=== PATIENT | female | born 1995 | race Caucasian/White ===

== ENCOUNTER 2019-05-05 12:12 | Inpatient (IN) | payer OTHER ==
[2019-05-05] MEDS ORDERED: SODIUM CHLORIDE 0.9% 1,000 ML IV STA ×2 (13:13→14:51)
[2019-05-05] MEDS ORDERED: ONDANSETRON 4 MG/2 ML VIAL IVP STA (13:13)
[2019-05-05] MEDS ORDERED: MORPHINE SULFATE 4 MG/ML SYRINGE IV STA (13:39)
--- NOTE | 2019-05-05 13:54 | ED ---
General Adult HPI - General Chief complaint: Abdominal Pain Stated complaint: Vomiting, abd pain Time Seen by Provider: 05/05/19 13:11 Source: patient Mode of arrival: ambulatory Limitations: no limitations - History of Present Illness Initial comments: Dictation was produced using [employer] dictation software. please excuse any grammatical, word or spelling errors. Chief Complaint: 24-year-old female presents with nausea vomiting abdominal pain. History of Present Illness: 24-year-old female she presents with nausea vomiting and abdominal pain. Patient states she's been feeling this since yesterday. She states she is currently on her period. She states that during her menstrual cycle she typically gets a little nauseated. Stat able to keep anything down. States that when she eats she feels instantly that she has to vomit. Strength take some antiemetics without any relief. Denies any fever, chills or night sweats. Patient states that she has diffuse abdominal pain. 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 Patient reports that her emesis is nonbilious not bloody The ROS documented in this emergency department record has been reviewed and confirmed by me. Those systems with pertinent positive or negative responses hicks ve been documented in the HPI. All other systems are other negative and/or noncontributory. PHYSICAL EXAM: General Impression: Alert and oriented x3, not in acute distress HEENT: Normocephalic atraumatic, extra-ocular movements intact, pupils equal and reactive to light bilaterally, mucous membranes moist. Cardiovascular: Heart regular rate and rhythm, S1&S2 audible, no murmurs, rubs or gallops Chest: Lungs clear to auscultation bilaterally, no rhonchi, no wheeze, no rales Abdomen: Bowel sounds present, abdomen soft, diffuse down tenderness to palpation Musculoskeletal: Pulses present and equal in all extremities, no peripheral edema Motor: no focal deficits noted Neurological: CN II-XII grossly intact, no focal motor or sensory deficits noted Skin: Multiple thoracic scars Psych: Normal affect and mood ED course: 24-year-old female with congenital cardiac defect status post surgery presents with nausea vomiting and abdominal pain. Vital signs upon arrival are within acceptable limits. Laboratory evaluation obtained. Leukocytosis of 18.4. Metabolic panel shows mild anion gap acidosis with a gap of 14 bicarb of 20. Lipase level is 1393. Urinalysis shows 2+ ketones. Patient given intravenous fluids. Ultrasound of the gallbladder was ordered showing no evidence of cholelithiasis or acute cholecystitis. Abdominal x-ray and chest x-ray are not acute. Patient will be admitted to Dr. Warren's group. Spoke with Debbi with the mid-level provider they will be accepting patient for care. Gastroenterology is consulted. EKG interpretation: Ventricular rate 82, unusual P axis, UT interval 116, QRS 96, QTC 448. No old EKG for comparison - Related Data Home Medications Medication Instructions Recorded Confirmed Aspirin 81 mg PO DAILY 05/05/19 05/05/19 Levalbuterol Tartrate 1 puff INHALATION RT-Q4H PRN 05/05/19 05/05/19 [Levalbuterol Tartrate 45 MCG Hfa] Allergies Allergy/AdvReac Type Severity Reaction Status Date / Time amoxicillin Allergy Dyspnea Verified 05/05/19 13:46 Penicillins Allergy Dyspnea Verified 05/05/19 13:46 Sulfa (Sulfonamide Allergy Dyspnea Verified 05/05/19 13:46 Antibiotics) Review of Systems ROS Statement: Those systems with pertinent positive or pertinent negative responses have been documented in the HPI. ROS Other: All systems not noted in ROS Statement are negative. 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 History of Any Multi-Drug Resistant Organisms: None Reported Past Surgical History: Coronary Bypass/CABG Past Psychological History: Anxiety, Depression Smoking Status: Never smoker Past Alcohol Use History: None Reported Past Drug Use History: None Reported General Exam Limitations: no limitations Course Vital Signs 05/05/19 05/05/19 05/05/19 12:37 14:19 15:56 Temperature 97.8 F Pulse Rate 57 L 100 87 Respiratory 20 18 18 Rate Blood Pressure 114/76 138/102 117/71 O2 Sat by Pulse 98 98 95 Oximetry Medical Decision Making - Lab Data Result diagrams: 05/05/19 14:05 05/05/19 14:05 Lab Results 05/05/19 05/05/19 05/05/19 Range/Units 14:05 14:05 14:05 WBC 18.4 H (3.8-10.6) k/uL RBC 4.90 (3.80-5.40) m/uL Hgb 14.7 (11.4-16.0) gm/dL Hct 44.9 (34.0-46.0) % MCV 91.7 (80.0-100.0) fL MCH 30.0 (25.0-35.0) pg MCHC 32.8 (31.0-37.0) g/dL RDW 13.1 (11.5-15.5) % Plt Count 140 L (150-450) k/uL Neutrophils % 89 % Lymphocytes % 5 % Monocytes % 5 % Eosinophils % 1 % Basophils % 0 % Neutrophils # 16.3 H (1.3-7.7) k/uL Lymphocytes # 0.9 L (1.0-4.8) k/uL Monocytes # 0.8 (0-1.0) k/uL Eosinophils # 0.2 (0-0.7) k/uL Basophils # 0.0 (0-0.2) k/uL Sodium 135 L (137-145) mmol/L Potassium 3.8 (3.5-5.1) mmol/L Chloride 101 (98-107) mmol/L Carbon Dioxide 20 L (22-30) mmol/L Anion Gap 14 mmol/L BUN 15 (7-17) mg/dL Creatinine 0.51 L (0.52-1.04) mg/dL Est GFR (CKD-EPI)AfAm >90 (>60 ml/min/1.73 sqM) Est GFR (CKD-EPI)NonAf >90 (>60 ml/min/1.73 sqM) Glucose 121 H (74-99) mg/dL Calcium 10.3 H (8.4-10.2) mg/dL Total Bilirubin 1.2 (0.2-1.3) mg/dL AST 34 (14-36) U/L ALT 26 (4-34) U/L Alkaline Phosphatase 75 (38-126) U/L Total Protein 8.1 (6.3-8.2) g/dL Albumin 5.1 H (3.5-5.0) g/dL Lipase 1393 H (23-300) U/L Urine Color Urine Appearance (Clear) Urine pH (5.0-8.0) Ur Specific [place] (1.001-1.035) Urine Protein (Negative) Urine Glucose (UA) (Negative) Urine Ketones (Negative) Urine Blood (Negative) Urine Nitrite (Negative) Urine Bilirubin (Negative) Urine Urobilinogen (<2.0) mg/dL Ur Leukocyte Esterase (Negative) Urine WBC (0-5) /hpf Ur Squamous Epith Cells (0-4) /hpf Hyaline Casts (0-2) /lpf Urine Mucus (None) /hpf Urine HCG, Qual Not Detected (Not Detectd) 05/05/19 Range/Units 14:05 WBC (3.8-10.6) k/uL RBC (3.80-5.40) m/uL Hgb (11.4-16.0) gm/dL Hct (34.0-46.0) % MCV (80.0-100.0) fL MCH (25.0-35.0) pg MCHC (31.0-37.0) g/dL RDW (11.5-15.5) % Plt Count (150-450) k/uL Neutrophils % % Lymphocytes % % Monocytes % % Eosinophils % % Basophils % % Neutrophils # (1.3-7.7) k/uL Lymphocytes # (1.0-4.8) k/uL Monocytes # (0-1.0) k/uL Eosinophils # (0-0.7) k/uL Basophils # (0-0.2) k/uL Sodium (137-145) mmol/L Potassium (3.5-5.1) mmol/L Chloride (98-107) mmol/L Carbon Dioxide (22-30) mmol/L Anion Gap mmol/L BUN (7-17) mg/dL Creatinine (0.52-1.04) mg/dL Est GFR (CKD-EPI)AfAm (>60 ml/min/1.73 sqM) Est GFR (CKD-EPI)NonAf (>60 ml/min/1.73 sqM) Glucose (74-99) mg/dL Calcium (8.4-10.2) mg/dL Total Bilirubin (0.2-1.3) mg/dL AST (14-36) U/L ALT (4-34) U/L Alkaline Phosphatase (38-126) U/L Total Protein (6.3-8.2) g/dL Albumin (3.5-5.0) g/dL Lipase (23-300) U/L Urine Color Yellow Urine Appearance Clear (Clear) Urine pH 7.0 (5.0-8.0) Ur Specific [place] 1.021 (1.001-1.035) Urine Protein Trace H (Negative) Urine Glucose (UA) Negative (Negative) Urine Ketones 2+ H (Negative) Urine Blood Small H (Negative) Urine Nitrite Negative (Negative) Urine Bilirubin Negative (Negative) Urine Urobilinogen <2.0 (<2.0) mg/dL Ur Leukocyte Esterase Negative (Negative) Urine WBC 1 (0-5) /hpf Ur Squamous Epith Cells 2 (0-4) /hpf Hyaline Casts 13 H (0-2) /lpf Urine Mucus Few H (None) /hpf Urine HCG, Qual (Not Detectd) Disposition Clinical Impression: Pancreatitis Disposition: ADMITTED IP TO THIS [facility] Condition: Fair Referrals: None,Stated [Primary Care Provider] - 1-2 days Decision Time: 16:13
[2019-05-05 14:21] LABS: Basophils % (A) 0 %; Eosinophils # (A) 0.2 k/uL (0-0.7); Eosinophils % (A) 1 %; HCT 44.9 % (34.0-46.0); HGB 14.7 gm/dL (11.4-16.0); Lymphocytes # (A) 0.9 k/uL (1.0-4.8); Lymphocytes % (A) 5 %; MCHC 32.8 g/dL (31.0-37.0); MCV 91.7 fL (80.0-100.0); Mean Platelet Volume 10.1; Monocytes # (A) 0.8 k/uL (0-1.0); Monocytes % (A) 5 %; Neutrophils # (A) 16.3 k/uL (1.3-7.7); Neutrophils % (A) 89 %; Platelet Count 140 k/uL (150-450); RDW 13.1 % (11.5-15.5); WBC 18.4 k/uL (3.8-10.6)
[2019-05-05 14:26] LABS: Appearance,Urine Clear (Clear); Bilirubin,Urine Negative (Negative); Blood,Urine Small (Negative); Color,Urine Yellow; Glucose,Urine (UA) Negative (Negative); Hyaline Casts,Urine 13 /lpf (0-2); Ketones,Urine 2+ (Negative); Leukocyte Esterase,Urine Negative (Negative); Mucus,Urine Few /hpf; Nitrite,Urine Negative (Negative); Protein,Urine Trace (Negative); Specific Gravity,Urine 1.021 (1.001-1.035); Squamous Epithelial Cell,Urine 2 /hpf (0-4); Urobilinogen,Urine <2.0 mg/dL (<2.0); WBC,Urine 1 /hpf (0-5)
[2019-05-05 14:36] LABS: ALT 26 U/L (4-34); AST 34 U/L (14-36); African American GFR (CKD) >90 (>60 ml/min/1.73 sqM); Albumin 5.1 g/dL (3.5-5.0); Alkaline Phosphatase 75 U/L (38-126); Anion Gap 14 mmol/L; Blood Urea Nitrogen 15 mg/dL (7-17); Calcium 10.3 mg/dL (8.4-10.2); Carbon Dioxide 20 mmol/L (22-30); Chloride 101 mmol/L (98-107); Glucose 121 mg/dL (74-99); Non-African American GFR(CKD) >90 (>60 ml/min/1.73 sqM); Potassium 3.8 mmol/L (3.5-5.1); Sodium 135 mmol/L (137-145); Total Bilirubin 1.2 mg/dL (0.2-1.3); Total Protein 8.1 g/dL (6.3-8.2)
--- NOTE | 2019-05-05 15:16 | XR ---
EXAMINATION TYPE: XR chest 2V DATE OF EXAM: 05/05/2019 COMPARISON: NONE HISTORY: Substernal chest pain TECHNIQUE: Frontal and lateral views of the chest are obtained. FINDINGS: Ascending thoracic aorta is tortuous. Midline sternotomy wires are seen. There is no focal air space opacity, pleural effusion, or pneumothorax seen. The cardiac silhouette size is within no rmal limits. The osseous structures are intact. IMPRESSION: Tortuosity of the ascending thoracic aorta, possible aneurysm. Correlate with cardiac hi story is prior cardiac surgery has been performed. No acute pulmonary pathology.
--- NOTE | 2019-05-05 15:24 | XR ---
EXAMINATION TYPE: XR abdomen 1V DATE OF EXAM: 05/05/2019 CLINICAL HISTORY: Abdominal pain, nausea, and vomiting TECHNIQUE: Single upright view of the abdomen was obtained. COMPARISON: None. FINDINGS: Multiple leads overlie the abdomen. No dilated large or small bowel. Lung bases are well ae rated. Osseous structures appear intact. No abnormal calcification in the abdomen or pelvis. No pneum operitoneum. IMPRESSION: Nonobstructive bowel gas pattern.
--- NOTE | 2019-05-05 15:57 | US ---
EXAMINATION TYPE: US gallbladder DATE OF EXAM: 05/05/2019 COMPARISON: NONE CLINICAL HISTORY: epigastric pain. Pain pancreatis situs inverses. EXAM MEASUREMENTS: Liver Length: 12.3 cm Gallbladder Wall: 0.1 cm CBD: 0.5 cm Right Kidney: 10.8 x 4.8 x cm Pancreas: Tail obscured by overlying bowel gas Liver: wnl Gallbladder: wnl Evidence for sonographic Acuna's sign: No CBD: wnl Right Kidney: wnl IMPRESSION: No sonographic evidence of cholelithiasis nor acute cholecystitis. Pancreas is partially obscured by bowel gas.
[2019-05-05] MEDS ORDERED: ONDANSETRON 4 MG/2 ML VIAL IVP PRN (16:10)
[2019-05-05] MEDS ORDERED: NALOXONE 0.4 MG/ML 1 ML VIAL IV PRN (16:10)
[2019-05-05] MEDS: SODIUM CHLORIDE 0.9% 1,000 ML IV SCH (17:55)
[2019-05-06] MEDS: SODIUM CHLORIDE 0.9% 1,000 ML IV SCH ×2 (03:32→11:17)
[2019-05-06 05:26] VITALS: BP 110/79; PULSE 70; RESP 16; TEMP 97.9
[2019-05-06] MEDS ORDERED: PANTOPRAZOLE 40 MG/10 ML VIAL IVP SCH (10:30)
--- NOTE | 2019-05-06 13:59 | P.HPIM ---
History of Present Illness Patient is a pleasant 24-year-old female came in with the complaints of nausea vomiting abdominal pain patient has an epigastric abdominal pain diffuse nonradiating sharp in nature moderate severity. Patient did vomit. Patient is admitted for pancreatitis patient has mildly elevated lipase of 1300. Patient's abdominal pain completely resolved at this time. Patient has some chronic abdominal pain which always happened just before her periods patient is presently having periods of his symptoms started yesterday. Patient denied any fever chills patient and the diarrhea. Patient doesn't believe this is secondary to gastritis or peptic ulcer disease patient does have gastroesophageal reflux disease in the these symptoms are different from her regular acid reflux symptoms. Patient denied any history of alcoholism ultraso und of the gallbladder did not show any gallstones or cholelithiasis. Does have history of asthma Review of Systems REVIEW OF SYSTEMS: CONSTITUTIONAL: No fever, no malaise, no fatigue. HEENT: No recent visual problems or hearing problems. Denied any sore throat. CARDIOVASCULAR: No chest pain, orthopnea, PND, no palpitations, no syncope. PULMONARY: No shortness of breath, no cough, no hemoptysis. GASTROINTESTINAL: As mentioned in HPI NEUROLOGICAL: No headaches, no weakness, no numbness. HEMATOLOGICAL: Denies any bleeding or petechiae. GENITOURINARY: Denies any burning micturition, frequency, or urgency. MUSCULOSKELETAL/RHEUMATOLOGICAL: Denies any joint pain, swelling, or any muscle pain. ENDOCRINE: Denies any polyuria or polydipsia. The rest of the 14-point review of systems is negative. 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 05/06/19 Rx Allergies Allergy/AdvReac Type Severity Reaction Status Date / Time amoxicillin Allergy Dyspnea Verified 05/05/19 13:46 Penicillins Allergy Dyspnea Verified 05/05/19 13:46 Sulfa (Sulfonamide Allergy Dyspnea Verified 05/05/19 13:46 Antibiotics) Physical Exam Vitals: Vital Signs Temp Pulse Pulse Resp BP BP Pulse Ox 05/06/19 05:25 97.9 F 70 16 110/79 92 L 05/05/19 21:24 98.1 F 65 18 114/79 93 L 05/05/19 17:06 97.8 F 87 18 117/71 95 05/05/19 15:56 87 18 117/71 95 05/05/19 14:19 100 18 138/102 98 Intake and Output 05/05/19 05/06/19 05/06/19 22:59 06:59 14:59 Other: # Voids 1 2 Weight 57.788 kg PHYSICAL EXAMINATION: GENERAL: The patient is alert and oriented x3, not in any acute distress. Well developed, well nourished. HEENT: Pupils are round and equally reacting to light. EOMI. No scleral icterus. No conjunctival pallor. Normocephalic, atraumatic. No pharyngeal erythema. No thyromegaly. CARDIOVASCULAR: S1 and S2 present. No murmurs, rubs, or gallops. PULMONARY: Chest is clear to auscultation, no wheezing or crackles. ABDOMEN: Soft, nontender, nondistended, normoactive bowel sounds. No palpable organomegaly. MUSCULOSKELETAL: No joint swelling or deformity. EXTREMITIES: No cyanosis, clubbing, or pedal edema. NEUROLOGICAL: Gross neurological examination did not reveal any focal deficits. SKIN: No rashes. Results CBC & Chem 7: 05/05/19 14:05 05/05/19 14:05 Labs: Abnormal Lab Results - Last 24 Hours (Table) 05/05/19 05/05/19 05/05/19 Range/Units 14:05 14:05 14:05 WBC 18.4 H (3.8-10.6) k/uL Plt Count 140 L (150-450) k/uL Neutrophils # 16.3 H (1.3-7.7) k/uL Lymphocytes # 0.9 L (1.0-4.8) k/uL Sodium 135 L (137-145) mmol/L Carbon Dioxide 20 L (22-30) mmol/L Creatinine 0.51 L (0.52-1.04) mg/dL Glucose 121 H (74-99) mg/dL Calcium 10.3 H (8.4-10.2) mg/dL Albumin 5.1 H (3.5-5.0) g/dL Lipase 1393 H (23-300) U/L Urine Protein Trace H (Negative) Urine Ketones 2+ H (Negative) Urine Blood Small H (Negative) Hyaline Casts 13 H (0-2) /lpf Urine Mucus Few H (None) /hpf Thrombosis Risk Factor Assmnt - Choose All That Apply Any of the Below Risk Factors Present?: No Assessment and Plan Plan: -Abdominal pain: Has symptomology is mostly consistent with endometriosis that than anything else although patient does follow up with the gynecology as an outpatient and patient has a scheduled diagnostic laparoscopy. Patient only has mild elevation of lipase my suspicion is low that patient has pancreatitis patient was started on diet will be discharged today patient can resume her regular diet. 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 -Depression
--- NOTE | 2019-05-06 14:02 | P.DS ---
Providers Date of admission: 05/05/19 16:10 Attending physician: Zander Warren Consults: 05/05/19 16:07 Consult Physician Routine Consulting Provider: Fran Hobbs Consult Reason/Comments: pancreatitis Do you want consulting provider notified?: Yes Primary care physician: Stated None Hospital Course: Please refer to HPI for further details Patient Condition at Discharge: Fair Plan - Discharge Summary New Discharge Prescriptions: New Omeprazole [PriLOSEC] 40 mg PO AC-BRKFST #14 capsule. No Action Aspirin 81 mg PO DAILY Levalbuterol Tartrate [Levalbuterol Tartrate 45 MCG Hfa] 1 puff INHALATION RT-Q4H PRN PRN Reason: Shortness Of Breath Discharge Medication List Aspirin 81 mg PO DAILY 05/05/19 [History] Levalbuterol Tartrate [Levalbuterol Tartrate 45 MCG Hfa] 1 puff INHALATION RT- Q4H PRN 05/05/19 [History] Omeprazole [PriLOSEC] 40 mg PO AC-BRKFST #14 capsule. 05/06/19 [Rx] Follow up Appointment(s)/Referral(s): Dmitri Nam MD [REFERRING] - 1 Week None,Stated [Primary Care Provider] - 1-2 days
== END 2019-05-06 15:28 | disposition home or self-care (01) | DRG 760 ==
LOC: EC 12:12 → 6NMEDSUR 16:10
PROVIDERS: ADMIT Hospitalist; ATTEND Hospitalist
DX: N80.9 Endometriosis, unspecified (principal); E87.2 Acidosis; G89.29 Other chronic pain; K21.9 Gastro-esophageal reflux disease without esophagitis; J45.909 Unspecified asthma, uncomplicated; F32.9 Major depressive disorder, single episode, unspecified; R74.8 Abnormal levels of other serum enzymes; Z79.82 Long term (current) use of aspirin; Z88.0 Allergy status to penicillin; Z87.74 Personal history of (corrected) congenital malformations of heart and circulatory system; Z95.1 Presence of aortocoronary bypass graft; Z88.2 Allergy status to sulfonamides
CPT/HCPCS: 36415; 71046; 74018; 76705; 80053; 81001; 81025; 83690; 85025; 93005; 96361; 96374; 96375; 99285

== ENCOUNTER 2019-09-13 12:39 | Emergency (ER) | payer OTHER ==
[2019-09-13 13:00] VITALS: RESP 18
[2019-09-13] MEDS ORDERED: ONDANSETRON 4 MG/2 ML VIAL IVP STA (14:17)
[2019-09-13] MEDS ORDERED: KETOROLAC 30 MG/ML 1 ML VIAL IVP STA (14:17)
[2019-09-13] MEDS ORDERED: SODIUM CHLORIDE 0.9% 2,000 ML IV STA (14:17)
[2019-09-13] MEDS ORDERED: FAMOTIDINE 20 MG/2 ML VIAL IV STA (14:18)
--- NOTE | 2019-09-13 14:18 | ED ---
Abdominal Pain HPI - General Chief Complaint: Abdominal Pain Stated Complaint: Abdominal Pain Time Seen by Provider: 09/13/19 14:06 Source: patient Mode of arrival: ambulatory Limitations: no limitations - History of Present Illness Initial Comments: Patient is 24-year-old female with history of pancreatitis presenting to emergency Department with chief complaint of abdominal pain. Patient states this is an ongoing issue for past few years where she develops a sudden onset of abdominal pain with multiple episodes of nausea and nonbilious, nonbloody vomiting. Patient reports typically the pain starts when she has an onset of her menstrual period but does not resolve when her menstrual cycles. Patient reports his most recent episode had occurred about 8 days ago she has not been able to keep much down which is causing her not to have any bowel movements over the last few days. Patient reports the pain as constant and sharp in nature mostly located in the epigastric region. Patient states she is not a alcohol drinker nor has a history of gallbladder related conditions. Patient reports taking [id number] analgesics with minimal improvement in symptoms. Denies any night sweats fevers chills. States the pain is not related to by mouth intake. Denies any vaginal or urinary symptoms. Denies hematuria, hematochezia or melena. Patient is a family history of endometriosis. - Related Data Home Medications Medication Instructions Recorded Confirmed Aspirin 81 mg PO DAILY 05/05/19 05/05/19 Levalbuterol Tartrate 1 puff INHALATION RT-Q4H PRN 05/05/19 05/05/19 [Levalbuterol Tartrate 45 MCG Hfa] Previous Rx's Medication Instructions Recorded Omeprazole [PriLOSEC] 40 mg PO RIOS-[facility]ARY #14 capsule. 05/06/19 Ondansetron Odt [Zofran Odt] 4 mg PO Q8HR PRN #14 tab 09/13/19 Allergies Allergy/AdvReac Type Severity Reaction Status Date / Time amoxicillin Allergy Dyspnea Verified 09/13/19 13:00 Penicillins Allergy Dyspnea Verified 09/13/19 13:00 Sulfa (Sulfonamide Allergy Dyspnea Verified 09/13/19 13:00 Antibiotics) Review of Systems ROS Statement: Those systems with pertinent positive or pertinent negative responses have been documented in the HPI. ROS Other: All systems not noted in ROS Statement are negative. 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 Absent: TM's normal bilaterally, normal external ear exam Neck exam: Present: normal inspection, full ROM. Absent: tenderness Respiratory exam: Present: normal lung sounds bilaterally. Absent: respiratory distress, wheezes, rales Cardiovascular Exam: Present: regular rate, normal rhythm, normal heart sounds GI/Abdominal exam: Present: soft, tenderness (Epigastric and left upper quadrant abdominal pain.), normal bowel sounds. Absent: distended, guarding, rebound Extremities exam: Present: normal inspection, full ROM. Absent: tenderness Back exam: Present: normal inspection, full ROM. Absent: tenderness, CVA tenderness (R), CVA tenderness (L) Neurological exam: Present: alert, oriented X3 Psychiatric exam: Present: normal affect, normal mood Skin exam: Present: warm, dry, intact, normal color Course Vital Signs 09/13/19 12:58 Temperature 97.7 F Pulse Rate 90 Respiratory 18 Rate Blood Pressure 120/80 O2 Sat by Pulse 99 Oximetry Medical Decision Making - Medical Decision Making Patient is a 24-year-old female presenting to emergency Department with chief complaint of abdominal pain. Symptoms about one for the past few years it seemed to be related to her menstrual cycles. She has been evaluated multiple times in the emergency department in [place] and in [place] with CT imaging showing nothing by free fluid in the abdomen. States prior to her onset of symptoms she did see her mixing tank operator and had a Pap smear. She is scheduled to have an abdominal ultrasound in 1 week. Patient has a leukocytosis of 14.9 which I suspect is secondary to the vomiting episodes. Patient is not . UA does show +3 ketones. Patient given 2 L of bolus fluids. Patient also given antiemetics and analgesia in the emergency department. I suspect her symptoms are secondary to endometriosis. She said to follow-up with a mixing tank operator within a week. Return parameters were thoroughly discussed the patient is understanding and agreeable she will be discharged with Jovany. Case discussed with physician. - Lab Data Result diagrams: 09/13/19 14:47 09/13/19 14:47 Lab Results 09/13/19 09/13/19 09/13/19 Range/Units 14:47 14:47 14:47 WBC 14.9 H (3.8-10.6) k/uL RBC 5.62 H (3.80-5.40) m/uL Hgb 16.8 H (11.4-16.0) gm/dL Hct 52.9 H (34.0-46.0) % MCV 94.1 (80.0-100.0) fL MCH 29.8 (25.0-35.0) pg MCHC 31.7 (31.0-37.0) g/dL RDW 13.5 (11.5-15.5) % Plt Count 146 L (150-450) k/uL Neutrophils % 94 % Lymphocytes % 3 % Monocytes % 2 % Eosinophils % 1 % Basophils % 0 % Neutrophils # 14.1 H (1.3-7.7) k/uL Lymphocytes # 0.4 L (1.0-4.8) k/uL Monocytes # 0.2 (0-1.0) k/uL Eosinophils # 0.2 (0-0.7) k/uL Basophils # 0.0 (0-0.2) k/uL Sodium (137-145) mmol/L Potassium (3.5-5.1) mmol/L Chloride (98-107) mmol/L Carbon Dioxide (22-30) mmol/L Anion Gap mmol/L BUN (7-17) mg/dL Creatinine (0.52-1.04) mg/dL Est GFR (CKD-EPI)AfAm (>60 ml/min/1.73 sqM) Est GFR (CKD-EPI)NonAf (>60 ml/min/1.73 sqM) Glucose (74-99) mg/dL Calcium (8.4-10.2) mg/dL Total Bilirubin (0.2-1.3) mg/dL AST (14-36) U/L ALT (4-34) U/L Alkaline Phosphatase (38-126) U/L Total Protein (6.3-8.2) g/dL Albumin (3.5-5.0) g/dL Amylase (30-110) U/L Lipase (23-300) U/L Urine Color Yellow Urine Appearance Cloudy H (Clear) Urine pH 5.5 (5.0-8.0) Ur Specific [place] 1.029 (1.001-1.035) Urine Protein Trace H (Negative) Urine Glucose (UA) Negative (Negative) Urine Ketones 2+ H (Negative) Urine Blood Negative (Negative) Urine Nitrite Negative (Negative) Urine Bilirubin Negative (Negative) Urine Urobilinogen <2.0 (<2.0) mg/dL Ur Leukocyte Esterase Negative (Negative) Urine RBC 1 (0-5) /hpf Urine WBC 3 (0-5) /hpf Ur Squamous Epith Cells 7 H (0-4) /hpf Hyaline Casts 3 H (0-2) /lpf Urine Mucus Many H (None) /hpf Urine HCG, Qual Not Detected (Not Detectd) 09/13/19 Range/Units 14:47 WBC (3.8-10.6) k/uL RBC (3.80-5.40) m/uL Hgb (11.4-16.0) gm/dL Hct (34.0-46.0) % MCV (80.0-100.0) fL MCH (25.0-35.0) pg MCHC (31.0-37.0) g/dL RDW (11.5-15.5) % Plt Count (150-450) k/uL Neutrophils % % Lymphocytes % % Monocytes % % Eosinophils % % Basophils % % Neutrophils # (1.3-7.7) k/uL Lymphocytes # (1.0-4.8) k/uL Monocytes # (0-1.0) k/uL Eosinophils # (0-0.7) k/uL Basophils # (0-0.2) k/uL Sodium 135 L (137-145) mmol/L Potassium 5.0 (3.5-5.1) mmol/L Chloride 101 (98-107) mmol/L Carbon Dioxide 19 L (22-30) mmol/L Anion Gap 15 mmol/L BUN 13 (7-17) mg/dL Creatinine 0.52 (0.52-1.04) mg/dL Est GFR (CKD-EPI)AfAm >90 (>60 ml/min/1.73 sqM) Est GFR (CKD-EPI)NonAf >90 (>60 ml/min/1.73 sqM) Glucose 116 H (74-99) mg/dL Calcium 10.0 (8.4-10.2) mg/dL Total Bilirubin 1.9 H (0.2-1.3) mg/dL AST 47 H (14-36) U/L ALT 30 (4-34) U/L Alkaline Phosphatase 74 (38-126) U/L Total Protein 9.0 H (6.3-8.2) g/dL Albumin 5.6 H (3.5-5.0) g/dL Amylase 56 (30-110) U/L Lipase 113 (23-300) U/L Urine Color Urine Appearance (Clear) Urine pH (5.0-8.0) Ur Specific [place] (1.001-1.035) Urine Protein (Negative) Urine Glucose (UA) (Negative) Urine Ketones (Negative) Urine Blood (Negative) Urine Nitrite (Negative) Urine Bilirubin (Negative) Urine Urobilinogen (<2.0) mg/dL Ur Leukocyte Esterase (Negative) Urine RBC (0-5) /hpf Urine WBC (0-5) /hpf Ur Squamous Epith Cells (0-4) /hpf Hyaline Casts (0-2) /lpf Urine Mucus (None) /hpf Urine HCG, Qual (Not Detectd) Disposition Clinical Impression: Abdominal pain, Nausea & vomiting Disposition: HOME SELF-CARE Condition: Stable Instructions (If sedation given, give patient instructions): Endometriosis (ED) Additional Instructions: Follow-up with your mixing tank operator. Take prescribed medication as directed. Return to emergency department if symptoms worsen. Alternate between Tylenol Motrin for pain control. Prescriptions: Ondansetron Odt [Zofran Odt] 4 mg PO Q8HR PRN #14 tab PRN Reason: Nausea Is patient prescribed a controlled substance at d/c from ED?: No Referrals: None,Stated [Primary Care Provider] - 1-2 days Time of Disposition: 16:04
[2019-09-13] MEDS ORDERED: MORPHINE SULFATE 4 MG/ML SYRINGE IVP STA (14:20)
[2019-09-13 15:01] LABS: Appearance,Urine Cloudy (Clear); Basophils % (A) 0 %; Bilirubin,Urine Negative (Negative); Blood,Urine Negative (Negative); Color,Urine Yellow; Eosinophils # (A) 0.2 k/uL (0-0.7); Eosinophils % (A) 1 %; Glucose,Urine (UA) Negative (Negative); HCT 52.9 % (34.0-46.0); HGB 16.8 gm/dL (11.4-16.0); Hyaline Casts,Urine 3 /lpf (0-2); Ketones,Urine 2+ (Negative); Leukocyte Esterase,Urine Negative (Negative); Lymphocytes # (A) 0.4 k/uL (1.0-4.8); Lymphocytes % (A) 3 %; MCH 29.8 pg (25.0-35.0); MCHC 31.7 g/dL (31.0-37.0); MCV 94.1 fL (80.0-100.0); Mean Platelet Volume 10.3; Monocytes # (A) 0.2 k/uL (0-1.0); Monocytes % (A) 2 %; Mucus,Urine Many /hpf; Neutrophils # (A) 14.1 k/uL (1.3-7.7); Neutrophils % (A) 94 %; Nitrite,Urine Negative (Negative); PH, Urine 5.5 (5.0-8.0); Platelet Count 146 k/uL (150-450); Protein,Urine Trace (Negative); RBC 5.62 m/uL (3.80-5.40); RBC,Urine 1 /hpf (0-5); RDW 13.5 % (11.5-15.5); Specific Gravity,Urine 1.029 (1.001-1.035); Squamous Epithelial Cell,Urine 7 /hpf (0-4); Urobilinogen,Urine <2.0 mg/dL (<2.0); WBC 14.9 k/uL (3.8-10.6); WBC,Urine 3 /hpf (0-5)
[2019-09-13 15:07] LABS: ALT 30 U/L (4-34); AST 47 U/L (14-36); African American GFR (CKD) >90 (>60 ml/min/1.73 sqM); Albumin 5.6 g/dL (3.5-5.0); Alkaline Phosphatase 74 U/L (38-126); Amylase 56 U/L (30-110); Anion Gap 15 mmol/L; Blood Urea Nitrogen 13 mg/dL (7-17); Carbon Dioxide 19 mmol/L (22-30); Chloride 101 mmol/L (98-107); Glucose 116 mg/dL (74-99); Non-African American GFR(CKD) >90 (>60 ml/min/1.73 sqM); Sodium 135 mmol/L (137-145); Total Bilirubin 1.9 mg/dL (0.2-1.3)
[2019-09-13] MEDS ORDERED: Acetaminophen-Codeine 300-30mg TAB PO STA (16:02)
[2019-09-13 17:02] VITALS: BP 117/76; PULSE 75; TEMP 98.2
== END 2019-09-13 17:11 | disposition home or self-care (01) ==
LOC: EC 12:39
DX: R10.12 Left upper quadrant pain (principal); R10.13 Epigastric pain; R11.2 Nausea with vomiting, unspecified; D72.829 Elevated white blood cell count, unspecified; R82.998 Other abnormal findings in urine; R93.41 Abnormal radiologic findings on diagnostic imaging of renal pelvis, ureter, or bladder; J45.909 Unspecified asthma, uncomplicated; Z79.51 Long term (current) use of inhaled steroids; Z79.82 Long term (current) use of aspirin; Z88.0 Allergy status to penicillin; Z88.2 Allergy status to sulfonamides; Z87.74 Personal history of (corrected) congenital malformations of heart and circulatory system; Z95.1 Presence of aortocoronary bypass graft
CPT/HCPCS: 36415; 80053; 82150; 83690; 85025; 81001; 81025; 99284; 96374; 96375 ×2; 96361 ×2; J2270; J2405

== ENCOUNTER 2019-10-19 18:10 | Emergency (ER) | payer OTHER ==
[2019-10-19 18:20] VITALS: TEMP 98.2
[2019-10-19 19:21] VITALS: RESP 18
[2019-10-19] MEDS ORDERED: SODIUM CHLORIDE 0.9% 1,000 ML IV STA (19:28)
--- NOTE | 2019-10-19 19:30 | ED ---
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 Patient has had lower abdominal pain for the past 4 years on and off. States it happens at least one time every month. Patient states 3 weeks ago she was finally diagnosed with endometriosis. Patient reports that her exact pain is back again. States that it feels cramping in her lower abdomen. States she is supposed to start her period soon. Denies fevers or chills. Denies diarrhea. Does admit to nausea. Patient has no other complaints at this time including shortness of breath, chest pain, abdominal pain, vomiting, headache, or visual changes. - Related Data Home Medications Medication Instructions Recorded Confirmed Aspirin 81 mg PO DAILY 05/05/19 05/05/19 Levalbuterol Tartrate 1 puff INHALATION RT-Q4H PRN 05/05/19 05/05/19 [Levalbuterol Tartrate 45 MCG Hfa] Previous Rx's Medication Instructions Recorded Omeprazole [PriLOSEC] 40 mg PO AC-BRKFST #14 capsule. 05/06/19 Ondansetron Odt [Zofran Odt] 4 mg PO Q8HR PRN #14 tab 09/13/19 Allergies Allergy/AdvReac Type Severity Reaction Status Date / Time amoxicillin Allergy Dyspnea Verified 10/19/19 18:20 Penicillins Allergy Dyspnea Verified 10/19/19 18:20 Sulfa (Sulfonamide Allergy Dyspnea Verified 10/19/19 18:20 Antibiotics) Review of Systems ROS Statement: Those systems with pertinent positive or pertinent negative responses have been documented in the HPI. ROS Other: All systems not noted in ROS Statement are negative. 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 Absent: scleral icterus, conjunctival injection, periorbital swelling ENT exam: Present: normal exam, mucous membranes moist Neck exam: Present: normal inspection, full ROM. Absent: tenderness, meningismus, lymphadenopathy Respiratory exam: Present: normal lung sounds bilaterally. Absent: respiratory distress, wheezes, rales, rhonchi, stridor Cardiovascular Exam: Present: regular rate, normal rhythm, normal heart sounds. Absent: systolic murmur, diastolic murmur, rubs, gallop, clicks GI/Abdominal exam: Present: soft, tenderness (mild suprapubic tenderness), normal bowel sounds. Absent: distended, guarding, rebound, rigid Expanded GI/Abdominal exam: Absent: psoas sign, obturator sign, heel tap sign, Acuna's sign, Rovsing's sign, tenderness at McBurney's Point Back exam: Absent: CVA tenderness (R), CVA tenderness (L) Neurological exam: Present: alert Course Vital Signs 10/19/19 10/19/19 10/19/19 18:18 19:18 20:57 Temperature 98.2 F Pulse Rate 82 75 60 Respiratory 20 18 18 Rate Blood Pressure 94/57 92/63 112/79 O2 Sat by Pulse 97 98 98 Oximetry Medical Decision Making - Medical Decision Making Vitals are stable. Abdomen is generalized tenderness in the suprapubic area. No tenderness at McBurney point. No rebound. Patient does have leukocytosis with a white blood cell count of 16.2 which she states she has had for years. Patient has seen hematology for this. CMP is unremarkable. Urinalysis is negative. Transvaginal ultrasound shows a heterogeneous uterus with a small to moderate amount of free fluid in the pelvic cul-de-sac. Both ovaries are identified and of normal size. There is a small cystic lesion right ovary not completely anechoic, possibly hemorrhagic cyst. At this time a recurrent patient follows up with her primary care and [employer]. However if she develops fevers or worsening abdominal pain she is to return here to the emergency room which she is agreeable to. - Lab Data Result diagrams: 10/19/19 19:45 10/19/19 19:45 Lab Results 08/12/2810/19/19 10/19/19 Range/Units 19:45 19:45 19:45 WBC 16.2 H (3.8-10.6) k/uL RBC 5.18 (3.80-5.40) m/uL Hgb 15.8 (11.4-16.0) gm/dL Hct 49.0 H (34.0-46.0) % MCV 94.4 (80.0-100.0) fL MCH 30.4 (25.0-35.0) pg MCHC 32.2 (31.0-37.0) g/dL RDW 13.8 (11.5-15.5) % Plt Count 131 L (150-450) k/uL Neutrophils % 88 % Lymphocytes % 6 % Monocytes % 4 % Eosinophils % 1 % Basophils % 0 % Neutrophils # 14.4 H (1.3-7.7) k/uL Lymphocytes # 0.9 L (1.0-4.8) k/uL Monocytes # 0.7 (0-1.0) k/uL Eosinophils # 0.1 (0-0.7) k/uL Basophils # 0.0 (0-0.2) k/uL Sodium (137-145) mmol/L Potassium (3.5-5.1) mmol/L Chloride (98-107) mmol/L Carbon Dioxide (22-30) mmol/L Anion Gap mmol/L BUN (7-17) mg/dL Creatinine (0.52-1.04) mg/dL Est GFR (CKD-EPI)AfAm (>60 ml/min/1.73 sqM) Est GFR (CKD-EPI)NonAf (>60 ml/min/1.73 sqM) Glucose (74-99) mg/dL Calcium (8.4-10.2) mg/dL Total Bilirubin (0.2-1.3) mg/dL AST (14-36) U/L ALT (4-34) U/L Alkaline Phosphatase (38-126) U/L Total Protein (6.3-8.2) g/dL Albumin (3.5-5.0) g/dL Amylase (30-110) U/L Lipase (23-300) U/L Urine Color Yellow Urine Appearance Clear (Clear) Urine pH 6.0 (5.0-8.0) Ur Specific [place] 1.019 (1.001-1.035) Urine Protein Trace H (Negative) Urine Glucose (UA) Negative (Negative) Urine Ketones Negative (Negative) Urine Blood Negative (Negative) Urine Nitrite Negative (Negative) Urine Bilirubin Negative (Negative) Urine Urobilinogen <2.0 (<2.0) mg/dL Ur Leukocyte Esterase Negative (Negative) Urine HCG, Qual Not Detected (Not Detectd) 10/19/19 Range/Units 19:45 WBC (3.8-10.6) k/uL RBC (3.80-5.40) m/uL Hgb (11.4-16.0) gm/dL Hct (34.0-46.0) % MCV (80.0-100.0) fL MCH (25.0-35.0) pg MCHC (31.0-37.0) g/dL RDW (11.5-15.5) % Plt Count (150-450) k/uL Neutrophils % % Lymphocytes % % Monocytes % % Eosinophils % % Basophils % % Neutrophils # (1.3-7.7) k/uL Lymphocytes # (1.0-4.8) k/uL Monocytes # (0-1.0) k/uL Eosinophils # (0-0.7) k/uL Basophils # (0-0.2) k/uL Sodium 138 (137-145) mmol/L Potassium 4.7 (3.5-5.1) mmol/L Chloride 104 (98-107) mmol/L Carbon Dioxide 24 (22-30) mmol/L Anion Gap 10 mmol/L BUN 11 (7-17) mg/dL Creatinine 0.58 (0.52-1.04) mg/dL Est GFR (CKD-EPI)AfAm >90 (>60 ml/min/1.73 sqM) Est GFR (CKD-EPI)NonAf >90 (>60 ml/min/1.73 sqM) Glucose 98 (74-99) mg/dL Calcium 10.2 (8.4-10.2) mg/dL Total Bilirubin 1.0 (0.2-1.3) mg/dL AST 25 (14-36) U/L ALT 21 (4-34) U/L Alkaline Phosphatase 70 (38-126) U/L Total Protein 8.4 H (6.3-8.2) g/dL Albumin 5.3 H (3.5-5.0) g/dL Amylase 49 (30-110) U/L Lipase 96 (23-300) U/L Urine Color Urine Appearance (Clear) Urine pH (5.0-8.0) Ur Specific [place] (1.001-1.035) Urine Protein (Negative) Urine Glucose (UA) (Negative) Urine Ketones (Negative) Urine Blood (Negative) Urine Nitrite (Negative) Urine Bilirubin (Negative) Urine Urobilinogen (<2.0) mg/dL Ur Leukocyte Esterase (Negative) Urine HCG, Qual (Not Detectd) Disposition Clinical Impression: Pelvic pain, Leukocytosis Disposition: HOME SELF-CARE Condition: Good Instructions (If sedation given, give patient instructions): Pelvic Pain in Women (ED) Additional Instructions: please follow-up with your [employer] P[employer]ER in 1-2 days. If you develop worsening symptoms or fevers return to the emergency room. Is patient prescribed a controlled substance at d/c from ED?: No Referrals: Timbo Bauer DO [Primary Care Provider] - 1-2 days Time of Disposition: 21:25
[2019-10-19 20:06] LABS: Basophils % (A) 0 %; Eosinophils # (A) 0.1 k/uL (0-0.7); Eosinophils % (A) 1 %; HGB 15.8 gm/dL (11.4-16.0); Lymphocytes # (A) 0.9 k/uL (1.0-4.8); Lymphocytes % (A) 6 %; MCH 30.4 pg (25.0-35.0); MCHC 32.2 g/dL (31.0-37.0); MCV 94.4 fL (80.0-100.0); Mean Platelet Volume 10.4; Monocytes # (A) 0.7 k/uL (0-1.0); Monocytes % (A) 4 %; Neutrophils # (A) 14.4 k/uL (1.3-7.7); Neutrophils % (A) 88 %; Platelet Count 131 k/uL (150-450); RBC 5.18 m/uL (3.80-5.40); RDW 13.8 % (11.5-15.5); WBC 16.2 k/uL (3.8-10.6)
[2019-10-19 20:16] LABS: ALT 21 U/L (4-34); AST 25 U/L (14-36); African American GFR (CKD) >90 (>60 ml/min/1.73 sqM); Albumin 5.3 g/dL (3.5-5.0); Alkaline Phosphatase 70 U/L (38-126); Amylase 49 U/L (30-110); Anion Gap 10 mmol/L; Appearance,Urine Clear (Clear); Bilirubin,Urine Negative (Negative); Blood Urea Nitrogen 11 mg/dL (7-17); Blood,Urine Negative (Negative); Calcium 10.2 mg/dL (8.4-10.2); Carbon Dioxide 24 mmol/L (22-30); Chloride 104 mmol/L (98-107); Color,Urine Yellow; Glucose 98 mg/dL (74-99); Glucose,Urine (UA) Negative (Negative); Ketones,Urine Negative (Negative); Leukocyte Esterase,Urine Negative (Negative); Lipase 96 U/L (23-300); Nitrite,Urine Negative (Negative); Non-African American GFR(CKD) >90 (>60 ml/min/1.73 sqM); Potassium 4.7 mmol/L (3.5-5.1); Protein,Urine Trace (Negative); Sodium 138 mmol/L (137-145); Specific Gravity,Urine 1.019 (1.001-1.035); Total Protein 8.4 g/dL (6.3-8.2); Urobilinogen,Urine <2.0 mg/dL (<2.0)
--- NOTE | 2019-10-19 20:39 | US ---
EXAMINATION TYPE: US transvaginal DATE OF EXAM: 10/19/2019 COMPARISON: NONE CLINICAL HISTORY: pain. Pelvic pain x 1 day. Hx endometriosis. Hx miscarriage. . TECHNIQUE: Transvaginal (TV). Date of LMP: 09/22/2019 EXAM MEASUREMENTS: Uterus: 7.3 x 4.9 x 3.4 cm Endometrial Stripe: 0.63 cm Right Ovary: 4.0 x 2.9 x 2.7 cm Left Ovary: 3.0 x 2.2 x 2.1 cm 1. Uterus: Anteverted Appears wnl. 2. Endometrium: Measures 0.63 3. Right Ovary: Measures slightly enlarged. Hypoechoic area seen measurin.5 x 1.4 x 1.9 cm. Hypoe choic-anechoic area seen measurin.4 x 2.0 x 1.9 cm. 4. Left Ovary: Hypoechoic area seen measurin.7 x 1.4 x 1.6 cm. Spectral, color and waveform doppler imaging shows arterial and venous flow within the ovaries. 5. Bilateral Adnexa: Fluid is seen within right adnexa. 6. Posterior cul-de-sac: Fluid is seen within CDS. Transvaginal pelvic ultrasound shows heterogeneous uterus. Small to moderate amount of free fluid in pelvic cul-de-sac. Endometrial stripe not suspiciously thickened. Both ovaries identified and normal in size. Small cystic lesions right ovary not completely anechoic, possible hemorrhagic cysts. No suspicious solid nodularity or thickened septa. No suspicious extra o varian masses. IMPRESSION: Small to moderate amount free fluid in pelvic cul-de-sac. Nonspecific finding. No acute f indings seen.
[2019-10-19] MEDS ORDERED: KETOROLAC 30 MG/ML 1 ML VIAL IVP STA (20:42)
[2019-10-19 20:58] VITALS: BP 112/79; PULSE 60
== END 2019-10-19 21:52 | disposition home or self-care (01) ==
LOC: EC 18:10
DX: R10.2 Pelvic and perineal pain (principal); D72.829 Elevated white blood cell count, unspecified; J45.909 Unspecified asthma, uncomplicated; N83.201 Unspecified ovarian cyst, right side; Z79.82 Long term (current) use of aspirin; Z88.2 Allergy status to sulfonamides; Z88.0 Allergy status to penicillin; Z95.1 Presence of aortocoronary bypass graft
CPT/HCPCS: 36415; 80053; 82150; 83690; 85025; 81003; 81025; 93975; 76830; 99284; 96374; 96361; J1885

== ENCOUNTER 2019-11-18 11:22 | Emergency (ER) | payer OTHER ==
[2019-11-18 11:46] VITALS: RESP 18
[2019-11-18] MEDS ORDERED: SODIUM CHLORIDE 0.9% 1,000 ML IV STA (12:20)
[2019-11-18] MEDS ORDERED: ONDANSETRON 4 MG/2 ML VIAL IVP STA (12:20)
[2019-11-18] MEDS ORDERED: HYDROmorphone 0.5 MG/0.5 ML SYRINGE IVP STA (12:20)
[2019-11-18] MEDS ORDERED: KETOROLAC 15 MG/ML 1 ML VIAL IVP STA (12:20)
--- NOTE | 2019-11-18 12:30 | ED ---
General Adult HPI - General Chief complaint: Nausea/Vomiting/Diarrhea Stated complaint: [place] and vomiting Time Seen by Provider: 11/18/19 11:54 Source: patient Mode of arrival: ambulatory Limitations: no limitations - History of Present Illness Initial comments: 24-year-old female patient with past medical history significant for endometriosis presents to the emergency department today for evaluation of generalized abdominal pain. Patient states the pain started over the last few days. States today it worsened. States she has been having nausea and vomiting today and unable to keep down any food, fluids, or medications. She denies fever or chills. States that she was constipated but did have a bowel movement this morning. Denies, dysuria, urinary frequency, urinary urgency. States she is having intermittent vaginal bleeding ranging in color from dark brown to red. Denies any passage of clots. She changes her pad every few hours. Patient states that she does have a history of endometriosis and her symptoms are consistent with her usual pain flares. Denies history of abdominal surgery. Patient denies any recent rash, cough, shortness of breath, chest pain, back pain, numbness, tingling, dizziness, weakness, headache, visual changes, or any other complaints. - Related Data Home Medications Medication Instructions Recorded Confirmed Aspirin 81 mg PO DAILY 05/05/19 05/05/19 Levalbuterol Tartrate 1 puff INHALATION RT-Q4H PRN 05/05/19 05/05/19 [Levalbuterol Tartrate 45 MCG Hfa] Previous Rx's Medication Instructions Recorded Omeprazole [PriLOSEC] 40 mg PO AC-BRKFST #14 capsule. 05/06/19 Ondansetron Odt [Zofran Odt] 4 mg PO Q8HR PRN #14 tab 09/13/19 Acetaminophen-Codeine 300-30mg 1 tab PO Q6H PRN #12 tablet 11/18/19 [Tylenol #3] Cephalexin [Keflex] 500 mg PO BID #14 cap 11/18/19 Ondansetron [Zofran ODT] 4 mg PO Q8HR PRN #10 tab 11/18/19 Allergies Allergy/AdvReac Type Severity Reaction Status Date / Time amoxicillin Allergy Dyspnea Verified 11/18/19 11:43 Penicillins Allergy Dyspnea Verified 11/18/19 11:43 Sulfa (Sulfonamide Allergy Dyspnea Verified 11/18/19 11:43 Antibiotics) Review of Systems ROS Statement: Those systems with pertinent positive or pertinent negative responses have been documented in the HPI. ROS Other: All systems not noted in ROS Statement are negative. 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 Vital signs upon presentation are temperature 98.1F, pulse 82, respirations 18, blood pressure 127/95, pulse ox 96% on room air.) Eye exam: Present: normal appearance, PERRL, EOMI. Absent: scleral icterus, conjunctival injection, periorbital swelling ENT exam: Present: normal exam, normal oropharynx, mucous membranes moist Respiratory exam: Present: normal lung sounds bilaterally. Absent: respiratory distress, wheezes, rales, rhonchi, stridor Cardiovascular Exam: Present: regular rate, normal rhythm, normal heart sounds. Absent: systolic murmur, diastolic murmur, rubs, gallop, clicks GI/Abdominal exam: Present: soft, tenderness (Generalized), normal bowel sounds. Absent: distended, guarding, rebound, rigid Neurological exam: Present: alert, oriented X3, CN II-XII intact Psychiatric exam: Present: normal affect, normal mood Skin exam: Present: warm, dry, intact, normal color. Absent: rash Course Vital Signs 11/18/19 11/18/19 11/18/19 11:43 12:41 14:09 Temperature 98.1 F Pulse Rate 82 81 74 Respiratory 18 18 18 Rate Blood Pressure 127/95 139/95 104/77 O2 Sat by Pulse 96 97 97 Oximetry 11/18/19 15:24 Temperature 98.0 F Pulse Rate 68 Respiratory 18 Rate Blood Pressure 102/75 O2 Sat by Pulse 97 Oximetry Medical Decision Making - Medical Decision Making 24-year-old female patient with past medical history significant for endometriosis presents to the emergency department today for evaluation of abdominal pain, nausea, vomiting. Patient states symptoms started this morning. Physical examination did reveal mild generalized tenderness. She denied abnormal vaginal discharge states that she's had intermittent spotting which is usual for her. Denies concern for sexually transmitted infection. Labs reviewed and did reveal mildly elevated white blood cell count most likely reactive from vomiting. Urinalysis shows no signs of infection. Patient did have transvaginal ultrasound a couple of weeks ago which was negative. Patient was given IV fluids and pain medication. Upon reevaluation she is resting comfortably states her pain is resolved. She had no more vomiting. She'll be discharged follow-up with her antenna engineer for further evaluation as soon as possible. Return parameters were discussed in detail. She verbalizes understanding and agrees with this plan. - Lab Data Result diagrams: 11/18/19 12:37 11/18/19 12:37 Lab Results 11/18/19 11/18/19 11/18/19 Range/Units 12:37 12:37 14:03 WBC 14.5 H (3.8-10.6) k/uL RBC 4.89 (3.80-5.40) m/uL Hgb 14.8 (11.4-16.0) gm/dL Hct 46.1 H (34.0-46.0) % MCV 94.1 (80.0-100.0) fL MCH 30.2 (25.0-35.0) pg MCHC 32.1 (31.0-37.0) g/dL RDW 13.3 (11.5-15.5) % Plt Count 168 (150-450) k/uL Neutrophils % 89 % Lymphocytes % 6 % Monocytes % 3 % Eosinophils % 1 % Basophils % 0 % Neutrophils # 12.9 H (1.3-7.7) k/uL Lymphocytes # 0.8 L (1.0-4.8) k/uL Monocytes # 0.5 (0-1.0) k/uL Eosinophils # 0.1 (0-0.7) k/uL Basophils # 0.0 (0-0.2) k/uL Sodium 133 L (137-145) mmol/L Potassium 4.8 (3.5-5.1) mmol/L Chloride 101 (98-107) mmol/L Carbon Dioxide 18 L (22-30) mmol/L Anion Gap 14 mmol/L BUN 12 (7-17) mg/dL Creatinine 0.57 (0.52-1.04) mg/dL Est GFR (CKD-EPI)AfAm >90 (>60 ml/min/1.73 sqM) Est GFR (CKD-EPI)NonAf >90 (>60 ml/min/1.73 sqM) Glucose 105 H (74-99) mg/dL Calcium 10.1 (8.4-10.2) mg/dL Total Bilirubin 1.3 (0.2-1.3) mg/dL AST 38 H (14-36) U/L ALT 25 (4-34) U/L Alkaline Phosphatase 82 (38-126) U/L Total Protein 8.5 H (6.3-8.2) g/dL Albumin 5.2 H (3.5-5.0) g/dL Amylase 62 (30-110) U/L Lipase 105 (23-300) U/L Urine Color Urine Appearance (Clear) Urine pH (5.0-8.0) Ur Specific [place] (1.001-1.035) Urine Protein (Negative) Urine Glucose (UA) (Negative) Urine Ketones (Negative) Urine Blood (Negative) Urine Nitrite (Negative) Urine Bilirubin (Negative) Urine Urobilinogen (<2.0) mg/dL Ur Leukocyte Esterase (Negative) Urine RBC (0-5) /hpf Urine WBC (0-5) /hpf Ur Squamous Epith Cells (0-4) /hpf Amorphous Sediment (None) /hpf Urine Bacteria (None) /hpf Urine Mucus (None) /hpf Urine HCG, Qual Not Detected (Not Detectd) 11/18/19 Range/Units 14:09 WBC (3.8-10.6) k/uL RBC (3.80-5.40) m/uL Hgb (11.4-16.0) gm/dL Hct (34.0-46.0) % MCV (80.0-100.0) fL MCH (25.0-35.0) pg MCHC (31.0-37.0) g/dL RDW (11.5-15.5) % Plt Count (150-450) k/uL Neutrophils % % Lymphocytes % % Monocytes % % Eosinophils % % Basophils % % Neutrophils # (1.3-7.7) k/uL Lymphocytes # (1.0-4.8) k/uL Monocytes # (0-1.0) k/uL Eosinophils # (0-0.7) k/uL Basophils # (0-0.2) k/uL Sodium (137-145) mmol/L Potassium (3.5-5.1) mmol/L Chloride (98-107) mmol/L Carbon Dioxide (22-30) mmol/L Anion Gap mmol/L BUN (7-17) mg/dL Creatinine (0.52-1.04) mg/dL Est GFR (CKD-EPI)AfAm (>60 ml/min/1.73 sqM) Est GFR (CKD-EPI)NonAf (>60 ml/min/1.73 sqM) Glucose (74-99) mg/dL Calcium (8.4-10.2) mg/dL Total Bilirubin (0.2-1.3) mg/dL AST (14-36) U/L ALT (4-34) U/L Alkaline Phosphatase (38-126) U/L Total Protein (6.3-8.2) g/dL Albumin (3.5-5.0) g/dL Amylase (30-110) U/L Lipase (23-300) U/L Urine Color Yellow Urine Appearance Turbid H (Clear) Urine pH 7.0 (5.0-8.0) Ur Specific [place] 1.023 (1.001-1.035) Urine Protein 1+ H (Negative) Urine Glucose (UA) Negative (Negative) Urine Ketones 2+ H (Negative) Urine Blood Moderate H (Negative) Urine Nitrite Negative (Negative) Urine Bilirubin Negative (Negative) Urine Urobilinogen <2.0 (<2.0) mg/dL Ur Leukocyte Esterase Large H (Negative) Urine RBC <1 (0-5) /hpf Urine WBC 17 H (0-5) /hpf Ur Squamous Epith Cells 11 H (0-4) /hpf Amorphous Sediment Rare H (None) /hpf Urine Bacteria Occasional H (None) /hpf Urine Mucus Rare H (None) /hpf Urine HCG, Qual (Not Detectd) Disposition Clinical Impression: Abdominal pain Disposition: HOME SELF-CARE Condition: Good Instructions (If sedation given, give patient instructions): Acute Nausea and Vomiting (ED), Abdominal Pain (ED) Additional Instructions: Take medications as directed. Follow-up with your antenna engineer for further evaluation as an as possible. Return to the emergency department immediately for any new, worsening, or concerning symptoms. Prescriptions: Cephalexin [Keflex] 500 mg PO BID #14 cap Acetaminophen-Codeine 300-30mg [Tylenol #3] 1 tab PO Q6H PRN #12 tablet PRN Reason: Pain Ondansetron [Zofran ODT] 4 mg PO Q8HR PRN #10 tab PRN Reason: Nausea Is patient prescribed a controlled substance at d/c from ED?: No Referrals: Timbo Bauer DO [Primary Care Provider] - 1-2 days Time of Disposition: 15:12
[2019-11-18 13:10] LABS: Basophils % (A) 0 %; Eosinophils # (A) 0.1 k/uL (0-0.7); Eosinophils % (A) 1 %; HCT 46.1 % (34.0-46.0); HGB 14.8 gm/dL (11.4-16.0); Lymphocytes # (A) 0.8 k/uL (1.0-4.8); Lymphocytes % (A) 6 %; MCH 30.2 pg (25.0-35.0); MCHC 32.1 g/dL (31.0-37.0); MCV 94.1 fL (80.0-100.0); Mean Platelet Volume 9.7; Monocytes # (A) 0.5 k/uL (0-1.0); Monocytes % (A) 3 %; Neutrophils # (A) 12.9 k/uL (1.3-7.7); Neutrophils % (A) 89 %; Platelet Count 168 k/uL (150-450); RBC 4.89 m/uL (3.80-5.40); RDW 13.3 % (11.5-15.5); WBC 14.5 k/uL (3.8-10.6)
[2019-11-18 13:23] LABS: ALT 25 U/L (4-34); African American GFR (CKD) >90 (>60 ml/min/1.73 sqM); Amylase 62 U/L (30-110); Anion Gap 14 mmol/L; Blood Urea Nitrogen 12 mg/dL (7-17); Calcium 10.1 mg/dL (8.4-10.2); Carbon Dioxide 18 mmol/L (22-30); Chloride 101 mmol/L (98-107); Glucose 105 mg/dL (74-99); Non-African American GFR(CKD) >90 (>60 ml/min/1.73 sqM); Sodium 133 mmol/L (137-145); Total Bilirubin 1.3 mg/dL (0.2-1.3)
[2019-11-18 13:37] LABS: Albumin 5.2 g/dL (3.5-5.0); Potassium 4.8 mmol/L (3.5-5.1); Total Protein 8.5 g/dL (6.3-8.2)
[2019-11-18 13:38] LABS: AST 38 U/L (14-36); Alkaline Phosphatase 82 U/L (38-126)
[2019-11-18 14:44] LABS: Amorphous Sediment,Urine Rare /hpf; Appearance,Urine Turbid (Clear); Bacteria,Urine Occasional /hpf; Bilirubin,Urine Negative (Negative); Blood,Urine Moderate (Negative); Color,Urine Yellow; Glucose,Urine (UA) Negative (Negative); Ketones,Urine 2+ (Negative); Leukocyte Esterase,Urine Large (Negative); Mucus,Urine Rare /hpf; Nitrite,Urine Negative (Negative); Protein,Urine 1+ (Negative); RBC,Urine <1 /hpf (0-5); Specific Gravity,Urine 1.023 (1.001-1.035); Squamous Epithelial Cell,Urine 11 /hpf (0-4); Urobilinogen,Urine <2.0 mg/dL (<2.0); WBC,Urine 17 /hpf (0-5)
[2019-11-18] MEDS ORDERED: ONDANSETRON 4 MG ODT STARTER PACK 2 TAB BTL PO STA (15:12)
[2019-11-18] MEDS ORDERED: ACET/COD 300 MG/30 MG STARTER PACK 6 TAB BTL PO STA (15:12)
[2019-11-18 15:25] VITALS: BP 102/75; PULSE 68; TEMP 98
== END 2019-11-18 15:25 | disposition home or self-care (01) ==
LOC: EC 11:22
DX: R10.84 Generalized abdominal pain (principal); R11.2 Nausea with vomiting, unspecified; D72.829 Elevated white blood cell count, unspecified; J45.909 Unspecified asthma, uncomplicated; Z79.82 Long term (current) use of aspirin; Z88.0 Allergy status to penicillin; Z88.2 Allergy status to sulfonamides; Z95.1 Presence of aortocoronary bypass graft
CPT/HCPCS: 36415; 80053; 82150; 83690; 85025; 81001; 81025; 87086; 99284; 96374; 96375 ×2; 96361 ×3; J2405; J1885; S0119; J1170